=== PATIENT | female | born 1995 | race Caucasian/White ===

== ENCOUNTER 2017-06-09 13:46 | Inpatient (IN) | payer OTHER ==
[2017-06-09] MEDS ORDERED: Oxytocin in LR* 20 UNITS/1,000 ML BAG IVPB SCH (20:00)
[2017-06-09 20:27] LABS: Hematocrit 34 % (35-47); Hemoglobin 11.5 g/dl (12.0-16.0); Mean Corpuscular HGB Conc 34 g/dl (31-36); Mean Corpuscular Hemoglobin 31 pg (27-31); Mean Corpuscular Volume 93 fL (80-97); Mean Platelet Volume 9 um3 (7.4-10.4); Red Blood Count 3.68 10^6/ul (4.0-5.4); Red Cell Distribution Width 14 % (10.5-15); White Blood Count 24.6 10^3/ul (3.5-10.8)
[2017-06-09 20:28] LABS: Add Diff/Slide Review? Slide Review Added; Comments Flag Yes
[2017-06-09 20:54] LABS: Eosinophils % 1 % (0-6); Immature Granulocytes 5 % (0-9); Myelocytes % 1 % (0-1); Neutrophil % 68 % (38-83); Reactive Lymph % 1 % (0-6)
[2017-06-09 20:55] LABS: RBC Morphology Normal (Normal)
[2017-06-09] MEDS ORDERED: OBEPIDURAL* 250 ML ONE (22:19)
[2017-06-09] MEDS ORDERED: Famotidine TAB* 20 MG PO PRN (22:59)
[2017-06-09] MEDS ORDERED: EPHEDrine (Pressors)* 50 MG/ML VIAL IV PUSH PRN (22:59)
[2017-06-09] MEDS ORDERED: Sodium Citrate/Citric Acid* 15 ML UDC PO PRN (22:59)
[2017-06-09] MEDS ORDERED: Phenylephrine IV* 40 MCG/ML 10 ML SYRINGE IV PUSH PRN (22:59)
[2017-06-09] MEDS ORDERED: OBEPIDURAL* 250 ML EPIDURAL SCH (23:00)
[2017-06-10] MEDS ORDERED: Glycerin ADULT SUPP PR PRN (01:47)
[2017-06-10] MEDS ORDERED: Dibucaine 1% 28.35 GM TUBE PR PRN (01:47)
[2017-06-10] MEDS ORDERED: Acetaminophen TAB* 325 MG PO PRN (01:47)
[2017-06-10] MEDS ORDERED: Witch Hazel PAD* JAR TOPICAL PRN (01:47)
[2017-06-10] MEDS ORDERED: Measles, Mumps,Rubella VACC* 0.5 ML/VIAL SUBCUT ONE (01:47)
[2017-06-10] MEDS: Ibuprofen TAB* 600 MG PO PRN ×3 (07:36→22:00)
[2017-06-10] MEDS: Docusate CAP* 100 MG PO SCH ×3 (08:32→21:10)
[2017-06-10] MEDS: Simethicone CHEW TAB* 80 MG PO SCH ×3 (08:37→21:39)
[2017-06-11] MEDS: Ibuprofen TAB* 600 MG PO PRN (04:19)
[2017-06-11 06:49] LABS: Hematocrit 33 % (35-47); Hemoglobin 10.9 g/dl (12.0-16.0); Mean Corpuscular HGB Conc 34 g/dl (31-36); Mean Corpuscular Hemoglobin 32 pg (27-31); Mean Corpuscular Volume 94 fL (80-97); Mean Platelet Volume 9 um3 (7.4-10.4); Red Blood Count 3.44 10^6/ul (4.0-5.4); Red Cell Distribution Width 15 % (10.5-15); White Blood Count 17.6 10^3/ul (3.5-10.8)
[2017-06-11 07:34] VITALS: BP 112/70
[2017-06-11] MEDS ORDERED: Ferrous Gluconate TAB* 324 MG TAB PO SCH (09:00)
[2017-06-11] MEDS: Docusate CAP* 100 MG PO SCH (09:07)
[2017-06-11] MEDS ORDERED: medroxyPROGESTERone ACETATE (DEPOT)* 150 MG/ML 1 ML IM ONE (09:26)
== END 2017-06-11 15:00 | disposition home or self-care (01) | DRG 560 ==
LOC: MCHOBOUT 13:46 → MCHOB 14:31
PROVIDERS: ADMIT Midwife; ATTEND Midwife
PROC: 10907ZC Drainage of Amniotic Fluid, Therapeutic from Products of Conception, Via Natural or Artificial Opening (ICD-10-PCS; principal; 2017-06-09)
PROC: 10E0XZZ Delivery of Products of Conception, External Approach (ICD-10-PCS; 2017-06-09)
PROC: 4A1HX4Z Monitoring of Products of Conception, Cardiac Electrical Activity, External Approach (ICD-10-PCS; 2017-06-09)
DX: O99.334 Smoking (tobacco) complicating childbirth (principal); F17.200 Nicotine dependence, unspecified, uncomplicated; Z91.040 Latex allergy status; Z3A.39 39 weeks gestation of pregnancy; Z37.0 Single live birth
CPT/HCPCS: 36415; 85025; 86850; 86900; 86901; 90707; A9270-GY; J1050

== ENCOUNTER 2017-07-15 06:05 | Day surgery (SDC) | payer MEDICAID, OTHER ==
[~2017-07-15 06:05] MED LIST: Buffered Lidocaine 0.9% SYRIN* 5 ML/SYR SYRINGE INTRADERM ONE; Dexamethasone IV* 4 MG/ML 1 ML (4 MG) IV SLOW PU ONE; Famotidine IV* 10 MG/ML 2 ML (20 mg) IV ONE; Levalbuterol 0.63MG/3ML NEB* UNIT OF USE INH ONE
[2017-07-15] MEDS ORDERED: Levalbuterol 1.25MG/0.5ML NEB ONE (06:18)
[2017-07-15] MEDS ORDERED: Dexamethasone IV* 4 MG/ML 1 ML (4 MG) ONE (06:18)
[2017-07-15] MEDS ORDERED: Famotidine IV* 10 MG/ML 2 ML (20 mg) ONE (06:18)
[2017-07-15] MEDS ORDERED: Buffered Lidocaine 0.9% SYRIN* 5 ML/SYR SYRINGE ONE (06:19)
[2017-07-15] MEDS ORDERED: ceFAZolin 2 GM PREMIX (*) 50 ML IVPB ONE (06:19)
[2017-07-15] MEDS ORDERED: ceFAZolin 1 GM ADVAN(*) 1 GM ADDV.VIAL IVPB ONE (06:19)
[2017-07-15] MEDS ORDERED: Bupivacaine 0.5% SDV PF* 30 ML VIAL ONE (07:23)
[2017-07-15] MEDS ORDERED: Bupivacaine 0.25% SDV* 30 ML ONE (07:23)
[2017-07-15] MEDS ORDERED: Ketorolac INJ* 30 MG/ML 1 ML VIAL ONE (07:24)
[2017-07-15] MEDS ORDERED: fentaNYL* 50 MCG/ML 5 ML VIAL (250 MCG VIAL) ONE (07:24)
[2017-07-15] MEDS ORDERED: Midazolam* 1 MG/ML 5 ML VIAL (5 MG) ONE (07:24)
[2017-07-15] MEDS ORDERED: Atracurium* 10 MG/ML 10 ML VIAL ONE (07:24)
[2017-07-15] MEDS ORDERED: Lidocaine 2% PF * 5 ML VIAL ONE (07:24)
[2017-07-15] MEDS ORDERED: Propofol* 10 MG/ML 20 ML BTL IV PUSH ONE (07:24)
[2017-07-15] MEDS ORDERED: Ondansetron INJ* 2 MG/ML VIAL ONE (07:24)
[2017-07-15] MEDS ORDERED: Glycopyrrolate IV* 0.2 MG/ML 1 ML VIAL ONE (07:53)
[2017-07-15] MEDS ORDERED: Desflurane* 240 ML INH ONE (08:03)
[2017-07-15] MEDS ORDERED: oxyCODONE/Acetamin 5/325 MG* TAB PO PRN (08:09)
[2017-07-15] MEDS ORDERED: Ondansetron INJ* 2 MG/ML VIAL IV PRN (08:09)
[2017-07-15] MEDS ORDERED: fentaNYL* 50 MCG/ML 2 ML VIAL (100 MCG VIAL) IV PRN (08:09)
[2017-07-15] MEDS ORDERED: HYDROmorphone* 1 MG/ML 1 ML SYR IV PRN (08:09)
[2017-07-15] MEDS ORDERED: DiMENhydriNATE IV* 50 MG/ML VIAL IV PUSH PRN (08:09)
[2017-07-15] MEDS ORDERED: fentaNYL* 50 MCG/ML 2 ML VIAL (100 MCG VIAL) ONE ×2 (08:17→09:25)
[2017-07-15 10:57] VITALS: BP 108/81
--- NOTE | 2017-07-16 04:07 | OP ---
DATE OF OPERATION: 07/15/17 [facility] DATE OF : [birth year] SURGEON: Paulino Black MD IN HOME TUTOR: JAZZ Spicer ANESTHESIOLOGIST: Amandeep Reagan MD ANESTHESIA: General anesthetic with endotracheal intubation. PRE-OP DIAGNOSIS: Multiparity, desired permanent sterilization. POST-OP DIAGNOSIS: Multiparity, desired permanent sterilization. OPERATIVE PROCEDURE: Bilateral laparoscopic tubal ligation with Filshie clip. ESTIMATED BLOOD LOSS: None. SPECIMENS: None. IV FLUIDS: She received 1400 cc of IV crystalloid fluid. URINE OUTPUT: 400 cc of clear urine. FINDINGS: Laparoscopically, the patient had a normal uterus, adnexa, bowel and bladder. There were no complications. DESCRIPTION OF PROCEDURE: The patient was taken to the operating room where she was identified. She was placed on the operating table where general anesthetic with endotracheal intubation was obtained without difficulty. She was then placed in the dorsal lithotomy position prepped and draped in a normal sterile fashion. Attention was then brought on to the patient's perineum, where the bladder was catheterized with a Snyder catheter and a speculum was inserted into the patient's vagina and to the cervix. A [place] manipulator was introduced and through the cervix and the balloon and manipulator filled with 4 cc of sterile water. Attention was then brought on to the patient's abdomen, where a 1 cm infraumbilical skin incision was made with a knife and carried through to the underlying layer of fascia. The fascia was then grasped with Maranda clamps incised and entered into the abdomen. Abdomen was confirmed using Teresa clamps. The Maranda clamps and fascia replaced with a Polysorb suture and through this incision, a 10 mm blunt trocar was introduced attached to the sutures. The abdomen was then filled with CO2 gas. A 2 mm laparoscope was introduced through the trocar and a survey of the patient's anatomy revealed findings as noted above. There is a second trocar introduced 4 cm above the symphysis pubis under direct visualization. Through this trocar, a Filshie clip applicator was introduced and Filshie clips were used to clamp the fallopian tubes bilaterally to complete coverage of the fallopian tube circumference. At this point, all the instruments were removed from the patient 's abdomen as well as the gas. The fascial incision and umbilicus was closed with 0 Polysorb suture and the skin incisions were closed with 4-0 Monocryl and subcuticular stitch. The patient tolerated the procedure well. Sponge, lap, needle counts were correct x2. She was transferred to recovery room area in stable condition. [id number]/[facility] #: [id number] MTDD
== END 2017-07-15 11:31 | disposition home or self-care (01) ==
LOC: OR 06:05
PROVIDERS: ATTEND Obstetrics & Gynecology
DX: Z30.2 Encounter for sterilization (principal); F17.210 Nicotine dependence, cigarettes, uncomplicated
CPT/HCPCS: A9270-GY; C1776; J0690; J1100; J1885; J2250; J2405; J2704; J3010

== ENCOUNTER 2018-01-22 17:45 | Emergency (ER) | payer OTHER, MEDICAID ==
[2018-01-22 18:00] VITALS: BP 125/88
--- NOTE | 2018-01-22 18:13 | UC ---
Hand/Wrist HPI - HPI Summary HPI Summary: This nice lady tripped and fell over one of her children's toys last night at 10 :00 she landed on her right hand now she's got fifth metacarpal pain swelling and bruising decreased movement in her pinky due to the pain in her hand - History Of Current Complaint Chief Complaint: UCUpperExtremity Stated Complaint: WRIST INJURY Time Seen by Provider: 01/22/18 18:10 Hx Obtained From: Patient Hx Last Menstrual Period: 01/07/18 ?: No Mechanism Of Injury: fall Onset/Duration: Sudden Onset Severity Initially: Moderate Severity Currently: Moderate Pain Intensity: 7 - patient refuses pain medication ice and elevation have been given Pain Scale Used: 0-10 Numeric Character Of Pain: Aching, Throbbing Aggravating Factor(s): Movement Alleviating Factor(s): Rest, Ice, Elevation Associated Signs And Symptoms: Positive: Swelling, Bruising Related History: Dominant Hand Right - Allergies/Home Medications Allergies/Adverse Reactions: Allergies Allergy/AdvReac Type Severity Reaction Status Date / Time latex Allergy Itching Verified 01/22/18 17:51 PMH/Surg Hx/FS Hx/Imm Hx Previously Healthy: No Respiratory History: Asthma Other History Of: Negative For: HIV, Hepatitis B, Hepatitis C, Anticoagulant Therapy - Surgical History Surgical History: Yes Surgery Procedure, Year, and Place: D&C 2009, EAR TUBES- 1999. leep procedure 2011. tubal ligation 2016 - Family History Known Family History: Positive: Hypertension, Diabetes - Social History Occupation: Employed Full-time Lives: With Family Alcohol Use: None Substance Use Type: None Smoking Status (MU): Light Every Day Tobacco Smoker Type: Cigarettes Amount Used/How Often: 5 cig/ day When Did the Patient Quit Smoking/Using Tobacco: 05/2017 - Immunization History Most Recent Influenza Vaccination: 11/26/16 Most Recent Pneumonia Vaccination: unknown Vaccination Up to Date: Yes Review of Systems Constitutional: Negative Skin: Negative, Bruising - right hand 5th mc dorsal bruising Eyes: Negative ENT: Negative Respiratory: Negative Cardiovascular: Negative Gastrointestinal: Negative Genitourinary: Negative Motor: Negative Neurovascular: Negative Musculoskeletal: Arthralgia - right hand 5mc, Edema Neurological: Negative Psychological: Negative Is Patient Immunocompromised?: No All Other Systems Reviewed And Are Negative: Yes Physical Exam Triage Information Reviewed: Yes Appearance: Well-Appearing, No Pain Distress, Obese Vital Signs: Initial Vital Signs Temp 98.3 F 01/22/18 17:52 Pulse 101 01/22/18 17:52 Resp 18 01/22/18 17:52 BP 125/88 01/22/18 17:52 Pulse Ox 100 01/22/18 17:52 Vital Signs Reviewed: Yes Eye Exam: Normal Eyes: Positive: Conjunctiva Clear ENT Exam: Normal ENT: Positive: Normal ENT inspection, Hearing grossly normal. Negative: Trismus , Muffled voice, Hoarse voice, Dental tenderness, Sinus tenderness Dental Exam: Normal Neck exam: Normal Neck: Positive: Supple, Nontender Respiratory Exam: Normal Respiratory: Positive: Chest non-tender, No respiratory distress, No accessory muscle use Cardiovascular Exam: Normal Cardiovascular: Positive: RRR, Pulses Normal, Brisk Capillary Refill Musculoskeletal Exam: Normal, Other Musculoskeletal: Positive: Strength Limited @ - right hand, ROM Limited @ - right 5th finger, Edema @ - right 5th mc Neurological Exam: Normal Psychological Exam: Normal Skin Exam: Normal Diagnostics - Radiology No standard instances Xray Interpretation: Positive (See Comments) - Patient has a mildly impacted 30 dorsal angulation of the proximal fifth metacarpal Radiology Interpretation Completed By: Radiologist Re-Evaluation - Re-Evaluation First Eval Change: Improved - Ulnar gutter splint applied with sling neuromotor vascular intact before and after splinting patient medicated with hydrocodone for pain Hand/Wrist Course/Dx - Course Course Of Treatment: Keep splint on Use sling, ice through the splint, ibuprofen for mild to moderate pain hydrocodone for moderate to severe pain follow with orthopedics on Thursday - Differential Dx/Diagnosis Provider Diagnoses: Diagnosis mildly impacted 30 dorsal angulation fifth proximal metacarpal Discharge - Discharge Plan Condition: Stable Disposition: HOME Prescriptions: Hydrocodone/Acetaminophen [Hydrocodone/Acetaminophen 5-325 mg] 1 tab PO Q6HR PRN #20 tab MDD 4 PRN Reason: Pain - Moderate To Severe Ibuprofen TAB* [Motrin TAB* 600 MG] 600 mg PO Q6H PRN #40 tab PRN Reason: Pain - Mild To Moderate Patient Education Materials: Hand Fracture (ED), R.I.C.E. Treatment (ED) Referrals: Martín Arce MD [Medical Doctor] - 3 Days No Primary Care Phys,NOPCP [Primary Care Provider] - 3 Days (Normal when she was falling forward. She tripped on a toy that was probably manage)
--- NOTE | 2018-01-22 18:38 | RAD ---
INDICATION: Fifth metacarpal pain post fall. COMPARISON: None. TECHNIQUE: AP, lateral, and oblique views RIGHT wrist. REPORT AND IMPRESSION: Mildly impacted fracture at the proximal metaphysis of the fifth metacarpal with approximate 30 degrees apex dorsal angulation due to disproportionate volar impaction. No definitive intra-articular extension evident. No additional fracture evident. Normal articular alignment. Generalized mild soft tissue swelling.
[2018-01-22] MEDS ORDERED: HYDROcodone/ACETAMIN 5-325 MG* 1 TAB PO ONE (19:14)
== END 2018-01-22 19:35 | disposition home or self-care (01) ==
LOC: UCEAST 17:45
DX: S62.306A Unspecified fracture of fifth metacarpal bone, right hand, initial encounter for closed fracture (principal); W22.8XXA Striking against or struck by other objects, initial encounter; Y92.9 Unspecified place or not applicable; F17.210 Nicotine dependence, cigarettes, uncomplicated
CPT/HCPCS: 25605; 99213; G0463

== ENCOUNTER 2018-05-11 19:24 | Emergency (ER) | payer OTHER ==
--- NOTE | 2018-05-11 19:32 | UC ---
Throat Pain/Nasal Richy HPI - HPI Summary HPI Summary: 23 yo female presents with sinus pain/pressure/congestion and sore throat for the past week. She has been taking tylenol and ibuprofen with mild relief, but feels her throat is getting progressively worse. She is not eating as much because of the pain. Denies fever, chills, cough, SOB, chest pain. - History of Current Complaint Stated Complaint: SORE THROAT Time Seen by Provider: 05/11/18 19:32 Hx Obtained From: Patient Hx Last Menstrual Period: 01/07/18 Onset/Duration: Gradual Onset Pain Intensity: 8 Pain Scale Used: 0-10 Numeric - Allergies/Home Medications Allergies/Adverse Reactions: Allergies Allergy/AdvReac Type Severity Reaction Status Date / Time latex Allergy Itching Verified 05/11/18 19:34 PMH/Surg Hx/FS Hx/Imm Hx Respiratory History: Asthma Other History Of: Negative For: HIV, Hepatitis B, Hepatitis C, Anticoagulant Therapy - Surgical History Surgical History: Yes Surgery Procedure, Year, and Place: D&C 2009, EAR TUBES- 1999. leep procedure 2011. tubal ligation 2016 - Family History Known Family History: Positive: Hypertension, Diabetes - Social History Lives: With Family Alcohol Use: None Substance Use Type: None Smoking Status (MU): Light Every Day Tobacco Smoker Type: Cigarettes Amount Used/How Often: 5 cig/ day When Did the Patient Quit Smoking/Using Tobacco: 05/2017 - Immunization History Most Recent Influenza Vaccination: 11/26/16 Most Recent Pneumonia Vaccination: unknown Vaccination Up to Date: Yes Review of Systems Constitutional: Negative Skin: Negative Eyes: Negative ENT: Sore Throat, Sinus Congestion, Sinus Pain/Tenderness Respiratory: Negative Cardiovascular: Negative Gastrointestinal: Negative Neurovascular: Negative Neurological: Negative Psychological: Negative All Other Systems Reviewed And Are Negative: Yes Physical Exam - Summary Physical Exam Summary: GENERAL: NAD. WDWN. No pain distress. SKIN: No rashes, sores, lesions, or open wounds. HEENT: Head: AT/NC Eyes: Conjunctiva clear without inflammation or discharge. Ears: Hearing grossly normal. TMs intact, no bulging, erythema, or edema. Nose: Nasal mucosa pink and moist. NTTP maxillary and frontal sinus. Throat: Posterior oropharynx mild erythema. No tonsillar enlargement. No exudates. Uvula midline. No hoarse voice or muffled voice. NECK: Supple. Right tonsillar mild LAD and tenderness. CHEST: CTAB. No r/r/w. No accessory muscle use. Breathing comfortably and in no distress. CV: RRR. Without m/r/g. Pulses intact. Brisk cap refill. NEURO: Alert. CN II-XII grossly intact. PSYCH: Age appropriate behavior. Triage Information Reviewed: Yes Vital Signs: Vital Signs: Temp Pulse Resp BP Pulse Ox 97.6 F 126 16 131/88 99 05/11/18 19:29 05/11/18 19:29 05/11/18 19:29 05/11/18 19:29 05/11/18 19:29 Throat Pain/Nasal Course/Dx - Course Course Of Treatment: POC strep negative. Pharyngitis. Sinusitis. - Differential Dx/Diagnosis Provider Diagnoses: Pharyngitis. Sinusitis Discharge - Sign-Out/Discharge Documenting (check all that apply): Discharge/Admit/Transfer - Discharge Plan Condition: Stable Disposition: HOME Prescriptions: Amoxicillin PO (*) [Amoxicillin 500 MG CAP*] 500 mg PO Q12H #14 cap Magic Mouth Was-ANGELLA/MAAL/LIDO* 5 ml SWISH SWAL QID #100 ml Patient Education Materials: Pharyngitis (ED) Referrals: No Primary Care Phys,NOPCP [Primary Care Provider] - Additional Instructions: If you develop a fever, shortness of breath, chest pain, new or worsening symptoms - please call your PCP or go to the ED. - Billing Disposition and Condition Condition: STABLE Disposition: Home
[2018-05-11 19:34] VITALS: BP 131/88
== END 2018-05-11 20:13 | disposition home or self-care (01) ==
LOC: UCEAST 19:24
DX: J32.9 Chronic sinusitis, unspecified (principal); J02.9 Acute pharyngitis, unspecified; J45.909 Unspecified asthma, uncomplicated; Z91.040 Latex allergy status; F17.210 Nicotine dependence, cigarettes, uncomplicated; Z82.49 Family history of ischemic heart disease and other diseases of the circulatory system; Z83.3 Family history of diabetes mellitus
CPT/HCPCS: 87651; 99212; G0463

== ENCOUNTER 2018-05-15 13:30 | Emergency (ER) | payer OTHER ==
[2018-05-15 13:59] VITALS: BP 142/80
--- NOTE | 2018-05-15 14:16 | UC ---
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--this pain as been going on and worsening for 2 weeks - History Of Current Complaint Chief Complaint: UCUpperExtremity Stated Complaint: LEFT HAND COMPLAINT Time Seen by Provider: 05/15/18 13:52 Hx Obtained From: Patient Hx Last Menstrual Period: tubal ?: No Mechanism Of Injury: repeative stress injury Onset/Duration: Gradual Onset, Lasting Weeks - 2 Severity Initially: Mild Severity Currently: Mild Character Of Pain: Aching, Throbbing Aggravating Factor(s): Movement Alleviating Factor(s): Nothing Associated Signs And Symptoms: Positive: Negative Related History: Dominant Hand Right - Allergies/Home Medications Allergies/Adverse Reactions: Allergies Allergy/AdvReac Type Severity Reaction Status Date / Time latex Allergy Itching Verified 05/15/18 14:00 PMH/Surg Hx/FS Hx/Imm Hx Previously Healthy: Yes Other History Of: Negative For: HIV, Hepatitis B, Hepatitis C, Anticoagulant Therapy - Surgical History Surgical History: Yes Surgery Procedure, Year, and Place: D&C 2009, EAR TUBES- 1999. leep procedure 2011. tubal ligation 2016 - Family History Known Family History: Positive: Hypertension, Diabetes - Social History Occupation: Employed Full-time Lives: With Family Alcohol Use: Rare Substance Use Type: None Smoking Status (MU): Light Every Day Tobacco Smoker Type: Cigarettes Amount Used/How Often: 5 cig/ day When Did the Patient Quit Smoking/Using Tobacco: 05/2017 - Immunization History Most Recent Influenza Vaccination: 11/26/16 Most Recent Pneumonia Vaccination: unknown Vaccination Up to Date: Yes Review of Systems Constitutional: Negative Skin: Negative Eyes: Negative ENT: Negative Respiratory: Negative Cardiovascular: Negative Gastrointestinal: Negative Genitourinary: Negative Motor: Negative Neurovascular: Negative Musculoskeletal: Arthralgia - left wrist pain 4/5 finger numbness and tingling Neurological: Negative Psychological: Negative Is Patient Immunocompromised?: No All Other Systems Reviewed And Are Negative: Yes Physical Exam Triage Information Reviewed: Yes Appearance: Well-Appearing, No Pain Distress, Obese Vital Signs: Initial Vital Signs Temp 98.2 F 05/15/18 13:55 Pulse 109 05/15/18 13:55 Resp 16 06/23/18 13:55 BP 142/80 05/15/18 13:55 Pulse Ox 98 05/15/18 13:55 Vital Signs Reviewed: Yes Eye Exam: Normal Eyes: Positive: Conjunctiva Clear ENT Exam: Normal ENT: Positive: Normal ENT inspection, Hearing grossly normal. Negative: Trismus , Muffled voice, Hoarse voice Dental Exam: Normal Neck exam: Normal Neck: Positive: Supple, Nontender Respiratory Exam: Normal Respiratory: Positive: Chest non-tender, No respiratory distress, No accessory muscle use Cardiovascular Exam: Normal Cardiovascular: Positive: RRR, Pulses Normal, Brisk Capillary Refill Musculoskeletal Exam: Normal Musculoskeletal: Positive: Strength Intact, ROM Intact, No Edema Neurological Exam: Normal Neurological: Positive: Alert, Muscle Tone Normal Psychological Exam: Normal Skin Exam: Normal Hand/Wrist Course/Dx - Course Course Of Treatment: cockup splint ibuprofen follow with orthopedic MD - Differential Dx/Diagnosis Provider Diagnoses: Left carpal tunnel syndrome Discharge - Sign-Out/Discharge Documenting (check all that apply): Discharge/Admit/Transfer - Discharge Plan Condition: Stable Disposition: HOME Patient Education Materials: Ibuprofen (By mouth), Paresthesia (ED) Referrals: Vel Wang MD [Medical Doctor] - If Needed - Billing Disposition and Condition Condition: STABLE Disposition: Home
== END 2018-05-15 14:40 | disposition home or self-care (01) ==
LOC: UCCORT 13:30
DX: G56.02 Carpal tunnel syndrome, left upper limb (principal); F17.210 Nicotine dependence, cigarettes, uncomplicated
CPT/HCPCS: 99212; G0463

== ENCOUNTER 2018-06-07 13:08 | Emergency (ER) | payer OTHER ==
[2018-06-07 14:02] LABS: ABS Basophils 0.1 10^3/ul (0-0.2); ABS Eosinophils 0.1 10^3/ul (0-0.6); ABS Lymphocytes 3.5 10^3/ul (1.0-4.8); ABS Monocytes 0.6 10^3/ul (0-0.8); ABS Neutrophils 8.1 10^3/ul (1.5-7.7); ABS Nucleated RBC 0 10^3/ul; Eosinophil % 1.1 % (0-6); Hematocrit 40 % (35-47); Hemoglobin 13.5 g/dl (12.0-16.0); Lymphocyte % 28.3 % (25-47); Mean Corpuscular HGB Conc 34 g/dl (31-36); Mean Corpuscular Hemoglobin 30 pg (27-31); Mean Corpuscular Volume 90 fL (80-97); Mean Platelet Volume 8.6 um3 (7.4-10.4); Nucleated Red Blood Cells % 0.1; Platelet Count 309 10^3/ul (150-450); Red Blood Count 4.49 10^6/ul (4.00-5.40); Red Cell Distribution Width 14 % (10.5-15); White Blood Count 12.5 10^3/ul (3.5-10.8)
[2018-06-07 14:10] LABS: Urine Appearance Clear; Urine Blood Negative (Negative); Urine Color Yellow; Urine Ketones Negative (Negative); Urine Protein Negative (Negative); Urine Specific Gravity 1.024 (1.010-1.030); Urine Urobilinogen Negative (Negative)
[2018-06-07 14:24] LABS: EGFR Non-African American 76.3 (>60)
--- NOTE | 2018-06-07 14:26 | ED ---
Psychiatric Complaint - HPI Summary HPI Summary: This is pravin Segura documenting for attending Peng Goss M.D. Pt states she has been crying for no apparent reason for the past 2 days, and is set off by the smallest triggers. She has had mental health issues her entire life, and has been diagnosed with borderline personality disorder. Pt has never believed the diagnosis since 6 years of therapy did not help her in any way. She c/o rapid and severe mood swings, going from severe depression to extreme darius. Pt also states she has become more verbally aggressive, but doesnt know why. As per male accompaniment, pt will be happy and suddenly start crying frequently. She also states she has had steady and manageable anxiety, but it has become worse over the past few months. Her PCP started her on Buspar, Lorazepam, and Benadryl recently and she was advised to stop smoking and drinking caffeine. Pt states she has had suicidal ideations the past week, but denies any current SI or any plan. She denies any nausea, abdominal pain, CP, headache, HI, or self-harm. Pt is a smoker, but denies drinking alcohol or using street drugs. She recognizes that she needs help, and states that bipolar disorder runs in her family. Pt does not see a therapist because it takes forever to get in, and wants a new therapist because her old one keeps blaming her issues on a childhood trauma. LKMP ended yesterday. PMHx asthma. - History Of Current Complaint Chief Complaint: EDMentalHealth Time Seen by Provider: 06/07/18 13:36 Hx Obtained From: Patient Hx Last Menstrual Period: tubal Onset/Duration: Gradual Onset, Lasting Weeks - 2-3 months, Worse Since Timing: Intermittent Episode Lasting Character: Manic, Depressed, Anxious, Angry - Aggressive Aggravating Factor(s): Nothing Alleviating Factor(s): Nothing Related History: Positive For: Prior Psychiatric Issues - borderline personality disorder Has Suicidal: Reports: Thoughts. Denies: With A Plan Has Homicidal: Denies: Thoughts - Allergies/Home Medications Allergies/Adverse Reactions: Allergies Allergy/AdvReac Type Severity Reaction Status Date / Time latex Allergy Itching Verified 06/07/18 13:10 Home Medications: Home Medications NK [No Home Medications Reported] 06/07/18 [History Confirmed 06/07/18] PMH/Surg Hx/FS Hx/Imm Hx Endocrine/Hematology History: Denies: Hx Anticoagulant Therapy, Hx Diabetes, Hx Thyroid Disease Cardiovascular History: Denies: Hx Hypertension, Hx Pacemaker/ICD Respiratory History: Reports: Hx Asthma - albuterol MDI as needed Denies: Hx Chronic Obstructive Pulmonary Disease (COPD), Hx Lung Cancer, Hx Pneumonia, Hx Pulmonary Embolism GI History: Reports: Hx Gastroesophageal Reflux Disease Denies: Hx Gall Bladder Disease, Hx Gastrointestinal Bleed, Hx Ulcer, Hx Urosepsis History: Reports: Other Problems/Disorders - UTI's; worse in Denies: Hx Kidney Stones, Hx Renal Disease Musculoskeletal History: Denies: Hx Scoliosis Sensory History: Denies: Hx Contacts or Glasses, Hx Hearing Aid Opthamlomology History: Denies: Hx Contacts or Glasses Neurological History: Reports: Hx Headaches - as a child Denies: Hx Dementia, Hx Seizures, Other Neuro Impairments/Disorders Psychiatric History: Reports: Hx Anxiety - , improved, Hx Depression - hx of improved, Hx Substance Abuse - [employer], 15 MONTHS SOBER, Other Psychiatric Issues/Disorders - borderline personality disorder Denies: Hx Schizophrenia, Hx Bipolar Disorder - Surgical History Surgery Procedure, Year, and Place: D&C 2009, EAR TUBES- 1999. leep procedure 2011. tubal ligation 2017 Hx Anesthesia Reactions: No - Immunization History Immunizations Up to Date: Yes Infectious Disease History: Yes Infectious Disease History: Reports: Hx Hepatitis - hep C Denies: Hx Human Immunodeficiency Virus (HIV), History Other Infectious Disease, Traveled Outside the [place] in Last 30 Days - Family History Known Family History: Positive: Hypertension, Diabetes, Other - Bipolar disorder - Social History Alcohol Use: Rare Substance Use Type: Reports: None Smoking Status (MU): Heavy Every Day Tobacco Smoker Type: Cigarettes Amount Used/How Often: 5 cig/ day Review of Systems Negative: Chest Pain Negative: Abdominal Pain, Nausea Negative: Headache Psychological: Other - NEGATIVE: HI, self-harm Positive: Anxious, Depressed, Other - Manic, SI All Other Systems Reviewed And Are Negative: Yes Physical Exam - Summary Physical Exam Summary: Appearance: Well appearing, no pain distress Skin: warm, dry, reflects adequate perfusion. Old scars on both forearms from prior self-injury. Head/face: normal Eyes: EOMI, EVANS ENT: normal Neck: supple, non-tender Respiratory: CTA, breath sounds present Cardiovascular: RRR, pulses symmetrical Abdomen: non-tender, soft Bowel Sounds: present Musculoskeletal: normal, strength/ROM intact Neuro: normal, sensory motor intact, A&Ox3 Psych: fleeting suicidal ideation, normal affect Triage Information Reviewed: Yes Vital Signs On Initial Exam: Initial Vitals Temp Pulse Resp BP Pulse Ox 97.8 F 113 20 141/86 98 06/07/18 13:10 06/07/18 13:10 06/07/18 13:10 06/07/18 13:10 06/07/18 13:10 Vital Signs Reviewed: Yes Diagnostics - Vital Signs Vital Signs Temp Pulse Resp BP Pulse Ox 06/07/18 13:10 97.8 F 113 20 141/86 98 - Laboratory Lab Results: Lab Results 06/07/18 06/07/18 Range/Units 13:51 13:53 WBC 12.5 H (3.5-10.8) 10^3/ul RBC 4.49 (4.00-5.40) 10^6/ul Hgb 13.5 (12.0-16.0) g/dl Hct 40 (35-47) % MCV 90 (80-97) fL MCH 30 (27-31) pg MCHC 34 (31-36) g/dl RDW 14 (10.5-15) % Plt Count 309 (150-450) 10^3/ul MPV 8.6 (7.4-10.4) um3 Neut % (Auto) 64.5 (38-83) % Lymph % (Auto) 28.3 (25-47) % Bryan % (Auto) 5.2 (0-7) % Eos % (Auto) 1.1 (0-6) % Baso % (Auto) 0.9 (0-2) % Absolute Neuts (auto) 8.1 H (1.5-7.7) 10^3/ul Absolute Lymphs (auto) 3.5 (1.0-4.8) 10^3/ul Absolute Monos (auto) 0.6 (0-0.8) 10^3/ul Absolute Eos (auto) 0.1 (0-0.6) 10^3/ul Absolute Basos (auto) 0.1 (0-0.2) 10^3/ul Absolute Nucleated RBC 0 10^3/ul Nucleated RBC % 0.1 Urine Color Yellow Urine Appearance Clear Urine pH 5.0 (5-9) Ur Specific Spencer 1.024 (1.010-1.030) Urine Protein Negative (Negative) Urine Ketones Negative (Negative) Urine Blood Negative (Negative) Urine Nitrate Negative (Negative) Urine Bilirubin Negative (Negative) Urine Urobilinogen Negative (Negative) Ur Leukocyte Esterase Negative (Negative) Urine Glucose Negative (Negative) Result Diagrams: 06/07/18 13:53 06/07/18 13:53 Lab Statement: Any lab studies that have been ordered have been reviewed, and results considered in the medical decision making process. - EKG 13:56 Cardiac Rate: NL - 99 bpm EKG Rhythm: Sinus Rhythm ST Segment: Normal EKG Interpretation: Normal axis. Normal interval. Course/Dx - Course Course Of Treatment: Patient presents for evaluation of the mental health complaint. She was cleared medically and had crisis evaluation done by [facility]. She was cleared for discharge by the psychiatrist with outpatient follow-up. - Differential Dx/Clinical Impression Provider Diagnosis: Anxiety disorder Discharge - Sign-Out/Discharge Documenting (check all that apply): Patient Departure - discharge - Discharge Plan Condition: Stable Disposition: HOME Patient Education Materials: Anxiety (ED) Referrals: Family, Childrens [Other] (HOURS 8:30 AM - 7:00 PM Fri 8:30 AM - 4:00 PM ) Amandeep Riley MD [Primary Care Provider] - - Billing Disposition and Condition Condition: STABLE Disposition: Home
[2018-06-07 16:00] VITALS: BP 138/84
== END 2018-06-07 17:55 | disposition home or self-care (01) ==
LOC: ED 13:08
DX: F41.9 Anxiety disorder, unspecified (principal); J45.909 Unspecified asthma, uncomplicated; K21.9 Gastro-esophageal reflux disease without esophagitis; Z87.440 Personal history of urinary (tract) infections; R56.9 Unspecified convulsions; F32.9 Major depressive disorder, single episode, unspecified; Z91.040 Latex allergy status; Z82.49 Family history of ischemic heart disease and other diseases of the circulatory system; Z83.3 Family history of diabetes mellitus; Z81.8 Family history of other mental and behavioral disorders; F17.210 Nicotine dependence, cigarettes, uncomplicated
CPT/HCPCS: 36415; 80053; 80307; 80320; 80329; 81003; 84443; 84702; 85025; 93005; 99284; G0480

== ENCOUNTER 2018-08-03 07:05 | Emergency (ER) | payer OTHER ==
--- NOTE | 2018-08-03 07:36 | ED ---
HPI Chest Pain - HPI Summary HPI Summary: This patient is a 23 year old F presenting to [facility] with a chief complaint of constant chest pain since it woke her up from sleep this morning at 05:00. The pain is across her chest and radiates around the back. The patient rates the pain 8/10 in severity. Patient reports dyspnea. Patient denies coughing. She has been moving houses recently. Patient is not on control and has no hx of blood clots. She has a FHx of a grandmother who had an MO at 25 y/o and a 27 y/o sister with congenital heart disease. - History of Current Complaint Chief Complaint: EDChestPainROMI Time Seen by Provider: 08/03/18 07:31 Hx Obtained From: Patient Hx Last Menstrual Period: tubal Onset/Duration: Started Hours Ago - 05:00 today, Still Present Timing: Constant Initial Severity: Severe Current Severity: Severe Pain Intensity: 8 Pain Scale Used: 0-10 Numeric Chest Pain Location: Diffuse Chest Pain Radiates: Yes Chest Pain Radiates To:: Back Aggravating Factor(s): Movement, Deep Breaths Alleviating Factor(s): Position - Sitting up Associated Signs and Symptoms: Positive: Other: - Dyspnea.. Negative: Cough - Allergy/Home Medications Allergies/Adverse Reactions: Allergies Allergy/AdvReac Type Severity Reaction Status Date / Time latex Allergy Itching Verified 08/03/18 07:12 Home Medications: Home Medications Benztropine Mesylate 1 tab PO BID 08/03/18 [History Confirmed 08/03/18] Thiothixene CAP* [Navane CAP 2 MG*] 10 tab PO BEDTIME 08/03/18 [History Confirmed 08/03/18] PMH/Surg Hx/FS Hx/Imm Hx Endocrine/Hematology History: Denies: Hx Anticoagulant Therapy, Hx Diabetes, Hx Thyroid Disease Cardiovascular History: Denies: Hx Hypertension, Hx Pacemaker/ICD Respiratory History: Reports: Hx Asthma - albuterol MDI as needed Denies: Hx Chronic Obstructive Pulmonary Disease (COPD), Hx Lung Cancer, Hx Pneumonia, Hx Pulmonary Embolism GI History: Reports: Hx Gastroesophageal Reflux Disease Denies: Hx Gall Bladder Disease, Hx Gastrointestinal Bleed, Hx Ulcer, Hx Urosepsis History: Reports: Other Problems/Disorders - UTI's; worse in Denies: Hx Kidney Stones, Hx Renal Disease Musculoskeletal History: Denies: Hx Scoliosis Sensory History: Denies: Hx Contacts or Glasses, Hx Hearing Aid Opthamlomology History: Denies: Hx Contacts or Glasses Neurological History: Reports: Hx Headaches - as a child Denies: Hx Dementia, Hx Seizures, Other Neuro Impairments/Disorders Psychiatric History: Reports: Hx Anxiety - , improved, Hx Depression - hx of improved, Hx Substance Abuse - [employer], 15 MONTHS SOBER, Other Psychiatric Issues/Disorders - borderline personality disorder Denies: Hx Eating Disorder, Hx Schizophrenia, Hx Bipolar Disorder, Hx of Violent Episodes Against Others - Surgical History Surgery Procedure, Year, and Place: D&C 2009, EAR TUBES- 1999. leep procedure 2011. tubal ligation 2017 Hx Anesthesia Reactions: No Infectious Disease History: No Infectious Disease History: Reports: Hx Hepatitis - hep C Denies: Hx Human Immunodeficiency Virus (HIV), History Other Infectious Disease, Traveled Outside the [place] in Last 30 Days - Family History Known Family History: Positive: Hypertension, Diabetes, Other - Bipolar disorder - Social History Occupation: Employed Full-time Alcohol Use: Rare Substance Use Type: Reports: None Smoking Status (MU): Heavy Every Day Tobacco Smoker Type: Cigarettes Amount Used/How Often: 5 cig/ day Review of Systems Positive: Chest Pain - Diffuse and radiating to her back Positive: Other - Dyspnea. Negative: Cough All Other Systems Reviewed And Are Negative: Yes Physical Exam - Summary Physical Exam Summary: GENERAL: Patient is a well-developed and nourished F who is lying comfortable in the stretcher. Patient is not in any acute respiratory distress. HEAD AND FACE: Normocephalic EYES: PERRLA, EOMI x 2. EARS: Hearing grossly intact. MOUTH: Oropharynx within normal limits. NECK: Supple, trachea is midline, no adenopathy, no JVD, no carotid bruit. CHEST: Symmetric, no tenderness at palpation LUNGS: Clear to auscultation bilaterally. No wheezing or crackles. CVS: Regular rate and rhythm, S1 and S2 present, no murmurs or gallops appreciated. ABDOMEN: Soft, non-tender. Bowel sounds are normal. No abdominal abnormal pulsations. EXTREMITIES: Full ROM in all major joints, no edema, no cyanosis or clubbing. NEURO: Alert and oriented x 3. No acute neurological deficits. Speech is normal and follows commands. SKIN: Dry and warm Triage Information Reviewed: Yes Vital Signs On Initial Exam: Initial Vitals Temp Pulse Resp BP Pulse Ox 96.9 F 72 19 122/86 97 08/03/18 07:08 08/03/18 07:08 08/03/18 07:08 08/03/18 07:08 08/03/18 07:08 Vital Signs Reviewed: Yes Diagnostics - Vital Signs Vital Signs Temp Pulse Resp BP Pulse Ox 08/03/18 07:08 96.9 F 72 19 122/86 97 - Laboratory Result Diagrams: 08/03/18 08:31 08/03/18 08:31 Lab Statement: Any lab studies that have been ordered have been reviewed, and results considered in the medical decision making process. - Radiology Chest X-Ray Radiology Interpretation Completed By: Radiologist - 08:52. NO ACTIVE CARDIOPULMONARY DISEASE. ED Physician has reviewed this imaging report. - EKG 08:06 Cardiac Rate: NL - 60 BPM EKG Rhythm: Sinus Rhythm ST Segment: Normal EKG Interpretation: Normal interval. Normal axis. Re-Evaluation - Re-Evaluation 1 Re-Evaluation Time: 12:01 Change: Improved Comment: Patient is feeling better after receiving Toradol. Informed the patient of the negative test results. Because of the elevated WBC count, I asked the patient about any urinary symptoms. She reported dysuria, so a UA will be obtained. Chest Pain Course/Dx - Course Assessment/Plan: This patient is a 23 year old F presenting to [facility] with a chief complaint of constant chest pain since it woke her up from sleep this morning at 05:00. Labs show leukocytosis with WBC = 12.9 H. 2 sets of troponin were negative. D-dimer was neg. CXR unremarkable. Patient feels much better after Toradol. Opened for investigation after the patient reported dysuria. A UA was obtained which showed that she has a UTI. I discussed results with patient and she agrees with this plan. She is hemodynamically stable upon discharge. Strict return precautions given and hshe will otherwise follow up with her PCP. - Diagnoses Provider Diagnoses: Urinary tract infection, Chest pain Discharge - Sign-Out/Discharge Documenting (check all that apply): Patient Departure - D/C - Discharge Plan Condition: Stable Disposition: HOME Prescriptions: Cephalexin CAP* [Keflex CAP*] 500 mg PO QID #20 cap Patient Education Materials: Chest Pain (ED), Urinary Tract Infection in Women (ED) Referrals: Amandeep Riley MD [Primary Care Provider] - 3 Days Additional Instructions: RETURN TO THE EMERGENCY DEPARTMENT FOR CHANGING OR WORSENING SYMPTOMS. - Billing Disposition and Condition Condition: STABLE Disposition: Home - Attestation Statements Document Initiated by Alexx: Yes Documenting Scribe: Nolberto Price Provider For Whom Scribe is Documenting (Include Credential): Rudy Tellez MD Scribe Attestation: Nolberto Arroyo, scribed for Rudy Tellez MD on 08/03/18 at 1838. Scribe Documentation Reviewed: Yes Provider Attestation: The documentation as recorded by the Nolberto costello accurately reflects the service I personally performed and the decisions made by , Rudy Tellez MD
[2018-08-03] MEDS ORDERED: Ketorolac INJ* 60 MG/2 ML VIAL IM ONE (07:58)
[2018-08-03 08:49] LABS: ABS Basophils 0.1 10^3/ul (0-0.2); ABS Eosinophils 0.1 10^3/ul (0-0.6); ABS Lymphocytes 2.9 10^3/ul (1.0-4.8); ABS Monocytes 0.7 10^3/ul (0-0.8); ABS Neutrophils 9.1 10^3/ul (1.5-7.7); ABS Nucleated RBC 0 10^3/ul; Eosinophil % 1.1 % (0-6); Hematocrit 37 % (35-47); Hemoglobin 12.7 g/dl (12.0-16.0); Lymphocyte % 22.7 % (25-47); Mean Corpuscular HGB Conc 34 g/dl (31-36); Mean Corpuscular Hemoglobin 31 pg (27-31); Mean Corpuscular Volume 90 fL (80-97); Mean Platelet Volume 8.8 um3 (7.4-10.4); Nucleated Red Blood Cells % 0; Platelet Count 317 10^3/ul (150-450); Red Blood Count 4.12 10^6/ul (4.00-5.40); Red Cell Distribution Width 14 % (10.5-15); White Blood Count 12.9 10^3/ul (3.5-10.8)
--- NOTE | 2018-08-03 08:55 | RAD ---
HISTORY: Chest pain COMPARISONS: October 30, 2010 VIEWS: 4: Frontal dual-energy and lateral views of the chest. FINDINGS: CARDIOMEDIASTINAL SILHOUETTE: The cardiomediastinal silhouette is normal. ERNIE: The ernie are normal. PLEURA: The costophrenic angles are sharp. No pleural abnormalities are noted. LUNG PARENCHYMA: The lungs are clear. ABDOMEN: The upper abdomen is clear. There is no subphrenic gas. BONES AND SOFT TISSUES: No bone or soft tissue abnormalities are noted. OTHER: None. IMPRESSION: NO ACTIVE CARDIOPULMONARY DISEASE.
[2018-08-03 08:59] LABS: INR 0.94 (0.77-1.02)
[2018-08-03 09:08] LABS: EGFR Non-African American 84.9 (>60)
[2018-08-03 12:37] LABS: Urine Appearance Cloudy; Urine Blood 3+ (Negative); Urine Color Amber; Urine Ketones Negative (Negative); Urine Protein 2+(100 mg/dL) (Negative); Urine Red Blood Cell 3+(>10/hpf) (Absent); Urine Specific Gravity 1.028 (1.010-1.030); Urine Urobilinogen Negative (Negative); Urine White Blood Cell 2+(11-20/hpf) (Absent)
[2018-08-03 13:13] VITALS: BP 125/80
== END 2018-08-03 13:12 | disposition home or self-care (01) ==
LOC: ED 07:05
DX: N39.0 Urinary tract infection, site not specified (principal); R06.00 Dyspnea, unspecified; F17.210 Nicotine dependence, cigarettes, uncomplicated; R07.9 Chest pain, unspecified
CPT/HCPCS: 36415; 71046; 80053; 81003; 81015; 83605; 84484; 84702; 85025; 85379; 85610; 85730; 87086; 93005; 96372; 99282; J1885

== ENCOUNTER 2020-01-06 11:00 | Emergency (ER) | payer SELFPAY ==
--- OUTSIDE RECORDS SUMMARY | 2020-01-06 11:09 | XMS REPORT | Continuity of Care Document ---
:1995 External Reference #:[id number] Author Name JAZZ Hart Address [address] [facility] [place] [address] Care Team Providers Name Role Phone Amandeep Riley MD - Family Care Team Information Research Laboratory Manager Medicine [place] [facility] - Care Team Information Research Laboratory Manager [phone] Physical Therapy Eric Arellano MD - Surgery Care Team Information Research Laboratory Manager [phone] Amandeep Antony ([place] - Direct) Care Team Information Research Laboratory Manager - Otolaryngology Jacqueline Villarreal MD Care Team Information Research Laboratory Manager Unavailable Problems Description No Information Available Social History Type Date Description Comments Sex Unknown Tobacco Use Start: Unknown Heavy tobacco smoker (more than 10 cigarettes/day) ETOH Use Occasional Tobacco Use Start: Unknown Light tobacco smoker (10 or quitting using the fewer cigarettes/day) nicotine patch Smoking Status Reviewed: 08/12/19 Light tobacco smoker (10 or quitting using the fewer cigarettes/day) nicotine patch Allergies, Adverse Reactions, Alerts Description No Known Drug Allergies Medications Active Medications SIG Qnty Indications Ordering Provider Date Valium 1/2-1 by mouth 30tabs Amandeep Rosa 09/02/2019 5mg Tablets three times a MD Osvaldo day as needed for anxiety Lamictal 1 by mouth twice 180tabs F39 Amandeep Rosa 06/23/2019 150mg Tablets a day MD Osvaldo Claritin 1 by mouth every Unknown 10mg Tablets day Liletta (52 MG) placed 2018 Unknown 19.5mcg/Day IUD History Medications Amoxicillin/Clavulanate 1 by mouth 20tabs H66.92 Carissa Bridget 08/12/2019 - Potassium twice a day STEFANY Andino 08/22/2019 875-125mg Tablets x 10 days Hydroxyzine HCL 1-2 by mouth 60tabs Amandeep Rosa 08/01/2019 - 10mg Tablets nighly for MD Osvaldo 12/07/2019 severe itch. Medications Administered in Office Medication SIG Qnty Indications Ordering Provider Date TB Intradermal Test Amandeep Riley MD 09/06/2018 Injection Brief Emotional/Behav JAZZ Hart 06/03/2018 Assessment W/ Scoring Doc Per Standard Inst Injection Immunizations CPT Code Status Date Vaccine Lot # [id number] Given 08/31/2019 Influenza Vac, Quadrivalent, Slit Virus, Im [id number] Given 09/06/2018 Influenza Vac, Quadrivalent, Slit Virus, Im [id number] Vital Signs Date Vital Result Comment 12/07/2019 3:59pm BP Systolic 118 mmHg BP Diastolic 76 mmHg Heart Rate 84 /min Body Temperature 98.4 F Respiratory Rate 16 /min 09/13/2019 6:51pm BP Systolic 120 mmHg BP Diastolic 84 mmHg Heart Rate 112 /min Body Temperature 97.9 F Respiratory Rate 17 /min Results Test Acquired Date Facility Test Result H/L Range Note Laboratory test 11/04/2019 [facility] medicine Quickstrep negative Negative finding (607)- - Laboratory test 08/11/2019 [facility] Hemoglobin A1c 4.9 % 4.1-5.7 finding (607)- - (Fma) Glucose Fingerstick (Fma) 92 mg/dL 70-105 Laboratory test finding 06/24/2019 [facility] HCV AB (Fma) neg negative (607)- - Procedures Date Code Description Status 08/11/2019 96483 Finger Or Heel Stick Completed Medical Devices Description No Information Available Encounters Type Date Location Provider Dx Diagnosis Office Visit 09/13/2019 Main Office Aimee Z30.09 Encounter for oth 7:00p JAZZ Sanabria general coun and advice on contraception Office Visit 08/12/2019 [facility] Office Carissa Gill H66.92 Otitis media, 3:00p STEFANY Andino unspecified, left ear Office Visit 08/01/2019 [facility] Office Amandeep Rosa L50.0 Allergic urticaria 9:10a MD Osvaldo Office Visit 06/23/2019 [facility] Office Aimee F41.9 Anxiety disorder, 8:45a JAZZ Sanabria unspecified R41.840 Attention and concentration deficit F39 Unspecified mood [affective] disorder G43.009 Migraine w/o aura, not intractable, w/o status migrainosus E66.9 Obesity, unspecified N61.1 Abscess of the breast and nipple N64.4 Mastodynia Assessments Date Code Description Provider 12/07/2019 M25.562 Pain in left knee JAZZ Hart 11/04/2019 J02.9 Acute pharyngitis, unspecified Carissa Andino NP 09/13/2019 Z30.09 Encounter for other general counseling JAZZ Hart and advice on contraception 08/31/2019 Z23 Encounter for immunization Amandeep Riley MD 08/12/2019 H66.92 Otitis media, unspecified, left ear Carissa Andino NP 08/11/2019 R73.01 Impaired fasting glucose Amandeep Riley MD 08/11/2019 E66.01 Morbid (severe) obesity due to excess Amandeep Riley MD calories 08/01/2019 L50.0 Allergic urticaria Amandeep Riley MD 06/24/2019 Z86.19 Personal history of other infectious and Carissa Andino NP parasitic diseases 06/24/2019 Z11.59 Encounter for screening for other viral Carissa Andino NP diseases 06/23/2019 F41.9 Anxiety disorder, unspecified CINTIA HartP 06/23/2019 R41.840 Attention and concentration deficit Aimee aSnabria, [facility] 06/23/2019 F39 Unspecified mood [affective] disorder CINTIA HartP 06/23/2019 G43.009 Migraine without aura, not intractable, JAZZ Hart without status migra 06/23/2019 E66.9 Obesity, unspecified CINTIA HartP 06/23/2019 N61.1 Abscess of the breast and nipple JAZZ Hart 06/23/2019 N64.4 Mastodynia Aimee Elly, [employer] Plan of Treatment No Information Available Functional Status Description No Information Available Mental Status Description No Information Available Referrals Refer to Reason for Referral Status Appt Date [facility] consult regarding weight loss Scheduled 2018 [address] [facility] [address] [place] [address] [phone]
--- NOTE | 2020-01-06 11:17 | UC ---
Head Injury HPI - HPI Summary HPI Summary: 24 yo female presents with head injury s/p fall. She tells me that about 30min [employer]IST she was on break at work and was outside. She was walking back inside and slipped on the snow/wet ground - feet went out from under her and she landed on her upper back and the back of her head smacked against the pavement. No LOC. She was able to get to her feet and came to . Currently she has head pain at the impact site and is slightly dizzy. Nothing OTC for pain. She denies vision changes, SOB, chest pain, n/v, neck pain, numbness, weakness, low back pain. - History Of Current Complaint Chief Complaint: UCTrauma Stated Complaint: FALL/HIT HEAD/DIZZINESS Hx Obtained From: Patient Hx Last Menstrual Period: 07/14/2019 Onset/Duration: Sudden Onset Severity Currently: Moderate Severity Initially: Moderate Pain Intensity: 7 Pain Scale Used: 0-10 Numeric - Allergies/Home Medications Allergies/Adverse Reactions: Allergies Allergy/AdvReac Type Severity Reaction Status Date / Time latex Allergy Itching Verified 01/06/20 11:14 Home Medications: Home Medications Levonorgestrel (Iud) [Mirena IUD] 0 mcg VAGINAL ONCE 01/06/20 [History Confirmed 01/06/20] diazePAM [Valium] 5 mg PO SEE INSTRUCTIONS 01/06/20 [History Confirmed 01/06/20] PMH/Surg Hx/FS Hx/Imm Hx Psychological History: Anxiety Other History Of: Hepatitis C Negative For: HIV, Hepatitis B, Anticoagulant Therapy - Surgical History Surgical History: Yes Surgery Procedure, Year, and Place: D&C 2009, EAR TUBES- 1999. leep procedure 2011. tubal ligation 2016 - Family History Known Family History: Positive: Hypertension, Diabetes, Other - Bipolar disorder - Social History Occupation: Employed Full-time Lives: With Family Alcohol Use: Rare Substance Use Type: None Smoking Status (MU): Current Every Day Smoker Type: Cigarettes Amount Used/How Often: 5 cig/ day When Did the Patient Quit Smoking/Using Tobacco: 05/2017 - Immunization History Most Recent Influenza Vaccination: 11/26/16 Most Recent Pneumonia Vaccination: unknown Vaccination Up to Date: Yes Review of Systems All Other Systems Reviewed And Are Negative: No Constitutional: Positive: Negative Skin: Positive: Negative Eyes: Positive: Negative ENT: Positive: Negative Respiratory: Positive: Negative Cardiovascular: Positive: Negative Gastrointestinal: Positive: Negative Genitourinary: Positive: Negative Motor: Positive: Negative Neurovascular: Positive: Negative Musculoskeletal: Positive: Negative Neurological/Mental Status: Positive: Headache, Other - Dizziness Psychological: Positive: Negative Physical Exam - Summary Physical Exam Summary: GENERAL: NAD. WDWN. No pain distress. SKIN: No rashes, sores, ulcers, masses, lesions. HEENT: Head: AT/NC. Mild TTP at occipital head at impact site without laceration or hematoma. No raccoon eyes or battles sign. Eyes: PERRLA. EOM intact. Conjunctiva clear without inflammation or discharge. Ears: Hearing grossly normal. TMs intact, no bulging, erythema, or edema. No hemotympanum Nose: Nasal mucosa pink and moist. NTTP maxillary and frontal sinus. Throat: Posterior oropharynx without exudates, erythema, or tonsillar enlargement. Uvula midline. NECK: Supple. Nontender. FROM CHEST: CTAB. No r/r/w. No accessory muscle use. Breathing comfortably and in no distress. CV: RRR. Pulses intact. Brisk cap refill. MSK: FROM in B/L UEs and LEs with symmetric strength. NEURO: A&Ox3. CN: II: Peripheral armstrong intact. Vision normal. III, IV, : EOMI. No nystagmus. PERRLA. V: Sensations intact and symmetric. Opens mouth and clenches teeth. VII: No facial asymmetry. Forehead wrinkles. Grins, shuts eyes, frowns, puffs cheeks. VIII: Hearing intact to finger rub. IX, X: Swallows and coughs. Uvula midline. XI: Shrugs shoulders. Turns head against resistance. XII : No tongue deviation [id number] are intact. Gait with normal base. Romberg : maintains balance, no pronator drift. Normal speech. No facial drooping. PSYCH: Age appropriate behavior. Triage Information Reviewed: Yes Vital Signs: Initial Vital Signs Temp 98.1 F 01/06/20 11:10 Pulse 92 01/06/20 11:10 Resp 19 01/06/20 11:10 BP 123/82 01/06/20 11:10 Pulse Ox 100 01/06/20 11:10 Vital Signs Reviewed: Yes Diagnostics - Radiology Brain CT Radiology Interpretation Completed By: Radiologist Summary of Radiographic Findings: IMPRESSION: 1. No acute intracranial abnormality. 2. 1.1 cm calcification along the posterior falx cerebri ( calcified meningioma versus dural calcification). Cervical XR Radiology Interpretation Completed By: Radiologist Summary of Radiographic Findings: IMPRESSION: #. Aside from straightening relative to normal cervical lordosis the examination is normal. Negative for fracture. Thoracic XR Radiology Interpretation Completed By: Radiologist Summary of Radiographic Findings: IMPRESSION: #. No radiographic evidence for traumatic thoracic spine injury. Head Injury Course/Dx - Course Course Of Treatment: CT and XRs as above. Discussed results with pt. Calcification on CT likely not of concern. Suspect mild concussion/head injury. Advised to rest, take tylenol/ibuprofen as directed for discomfort, avoid physical and mental activities that worsen symptoms - especially screen time. Strongly advised to f/u with Dr. Olmstead of [facility] for a recheck early next week. - Differential Dx/Diagnosis Provider Diagnosis: Head injury Discharge ED - Sign-Out/Discharge Documenting (check all that apply): Patient Departure All imaging exams completed and their final reports reviewed: Yes - Discharge Plan Condition: Stable Disposition: HOME Patient Education Materials: Concussion (ED), Head Injury (ED) Forms: *Work Release Referrals: Amandeep Riley MD [Primary Care Provider] - Cassius Olmstead MD [Medical Doctor] - As Soon As Possible Additional Instructions: If you develop a fever, shortness of breath, chest pain, new or worsening symptoms - please call your PCP or go to the ED immediately. Treatment of a concussion include: Preventing further injury Most concussions get better on their own. While you are healing, it's important that you not do too much and not play any organized sports. Physical rest You should rest for 24 to 48 hours. After that, you can slowly start to get back to regular activities. This includes light physical activity, as long as it doesn't make symptoms worse. You should continue to avoid contact sports, or other sports that could cause a head injury, until you have completely recovered. Mental rest Doctors also call this "cognitive rest." It involves avoiding things that make symptoms worse, such as reading, playing video games, or using a smartphone, tablet, or computer. Treating symptoms In addition to rest, there are ways to help relieve your symptoms. For example: Headache If you have a headache, you may take acetaminophen (sample brand name : Tylenol) and NSAIDs such as ibuprofen (sample brand names: Advil, Motrin) and naproxen (sample brand name: Aleve). These medicines should only be used for a few days and taken as directed. I RECOMMEND THAT YOU CALL OCCUPATIONAL MEDICINE ([facility]) DR. OLMSTEAD AT THE NUMBER BELOW TO SCHEDULE A RECHECK FOR NEXT WEEK - Billing Disposition and Condition Condition: STABLE Disposition: Home - Attestation Statements Provider Attestation: I was available for consult. This patient was seen by the BRANDI. The patient was not presented to, seen by, or examined by me. -Gege
[2020-01-06] MEDS ORDERED: Acetaminophen TAB* 325 MG PO ONE (11:33)
[2020-01-06 14:12] VITALS: BP 123/82
== END 2020-01-06 12:38 | disposition home or self-care (01) ==
LOC: UCEAST 11:00
DX: S09.90XA Unspecified injury of head, initial encounter (principal); G93.89 Other specified disorders of brain; M40.50 Lordosis, unspecified, site unspecified; K75.89 Other specified inflammatory liver diseases; F17.210 Nicotine dependence, cigarettes, uncomplicated; F41.9 Anxiety disorder, unspecified; Z79.899 Other long term (current) drug therapy; Z91.040 Latex allergy status; W00.0XXA Fall on same level due to ice and snow, initial encounter; W22.8XXA Striking against or struck by other objects, initial encounter; Y92.9 Unspecified place or not applicable
CPT/HCPCS: 70450; 72050; 72070; 99212; A9270-GY; G0463

== ENCOUNTER 2021-08-20 21:04 | Inpatient (IN) ==
[2021-08-20 22:31] LABS: Urine Appearance Cloudy; Urine Bilirubin Negative (Negative); Urine Blood Negative (Negative); Urine Color Yellow; Urine Glucose Negative (Negative); Urine Ketones Negative (Negative); Urine Nitrite Negative (Negative); Urine Protein Negative (Negative); Urine Urobilinogen Negative (Negative)
[2021-08-20 22:36] LABS: Urine Bacteria 1+ (Absent); Urine Red Blood Cell 1+(3-5/hpf) (Absent); Urine Squamous Epithelial Cell Present (Absent); Urine White Blood Cell 2+(11-20/hpf) (Absent)
[2021-08-20 22:52] LABS: Hematocrit 40 % (35-47); Hemoglobin 13.9 g/dL (12.0-16.0); Mean Corpuscular HGB Conc 35 g/dL (31-36); Mean Corpuscular Hemoglobin 32 pg (27-31); Mean Corpuscular Volume 93 fL (80-97); Mean Platelet Volume 8.6 fL (7.4-10.4); Platelet Count 331 10^3/uL (150-450); Red Blood Count 4.29 10^6 /uL (3.70-4.87); Red Cell Distribution Width 14 % (10-15); White Blood Count 14.8 10^3/uL (3.5-10.8)
[2021-08-20 23:09] LABS: ALT 27 U/L (7-52); AST 26 U/L (13-39); Albumin 4.2 g/dL (3.2-5.2); Albumin/Globulin Ratio 1.1 (1-3); Alkaline Phosphatase 96 U/L (35-149); Anion Gap 8 mmol/L (2-11); Blood Urea Nitrogen 11 mg/dL (6-24); CO2 Carbon Dioxide 25 mmol/L (22-32); Calcium 9.7 mg/dL (8.6-10.3); Chloride 106 mmol/L (101-111); EGFR African American 85.8 (>60); EGFR Non-African American 70.9 (>60); Globulin 3.7 g/dL (2-4); Glucose 98 mg/dL (70-100); Potassium 3.8 mmol/L (3.5-5.0); Sodium 139 mmol/L (135-145); Total Protein 7.9 g/dL (6.4-8.9)
[2021-08-20 23:15] LABS: HCG Pregnancy < 0.60 mIU/mL
[2021-08-20 23:17] LABS: Urine Benzodiazepine Screen Presumptive Positive (None Detect); Urine Cannabinoids Screen None Detected (None Detect); Urine Opiates Screen None Detected (None Detect)
[2021-08-21 00:09] LABS: Acetaminophen < 15 mcg/mL; Alcohol, S < 13 mg/dL (<13); Salicylate < 2.50 mg/dL (<30)
[2021-08-21 00:24] LABS: TSH Ultra Thyroid Stim Horm 1.08 mcIU/mL (0.34-5.60)
[2021-08-21 01:39] LABS: RBC Morphology Normal (Normal)
[2021-08-21 01:40] LABS: ABS Basophils 0.1 10^3/ul (0-0.2); ABS Eosinophils 0.2 10^3/ul (0-0.6); ABS Lymphocytes 5.1 10^3/ul (1.0-4.8); ABS Monocytes 0.7 10^3/ul (0-0.8); ABS Neutrophils 8.7 10^3/ul (1.5-7.7); Eosinophil % 1.5 %; Lymphocyte % 34.6 %
[2021-08-21] MEDS ORDERED: Al Hydrox/Mg Hydrox/Simet LIQ 30 ML UDC PO PRN (08:47)
[2021-08-21] MEDS ORDERED: Albuterol HFA INHALER 8 gm MDI INH PRN (08:51)
[2021-08-21 10:56] LABS: Rapid COVID-19 Molecular Undetected (Undetected)
[2021-08-21] MEDS ORDERED: Nicotine GUM 2MG FRUIT FLAVOR PO PRN (15:27)
[2021-08-22] MEDS: Nicotine PATCH 21 MG/24 HR PATCH TRANSDERM SCH (08:25)
[2021-08-22] MEDS ORDERED: Flu vaccine *QUAD* 2021-22* 0.5 ML SYRINGE IM ONE (09:00)
[2021-08-22] MEDS: Nitrofurantoin (monohydrate/macrocrystals) 100 mg CAP PO SCH ×2 (12:37→21:01)
[2021-08-23] MEDS: Nitrofurantoin (monohydrate/macrocrystals) 100 mg CAP PO SCH (08:02)
[2021-08-23] MEDS: Nicotine PATCH 21 MG/24 HR PATCH TRANSDERM SCH (08:03)
[2021-08-23 08:12] LABS: HDL Cholesterol 34.6 mg/dL
[2021-08-23 08:31] VITALS: BP 119/77
== END 2021-08-23 12:04 | disposition home or self-care (01) | DRG 753 ==
LOC: ED 21:04 → BSU 08-21 08:47 → ED 08-21 11:23
PROVIDERS: ADMIT Psychiatry & Neurology Psychiatry; ATTEND Psychiatry & Neurology Psychiatry